=== PATIENT | female | born 1955 | race Caucasian/White ===

== ENCOUNTER → 2017-01-02 | Outpatient (CLI) | payer OTHER ==
[~2017-01-02] VITALS: Ht 167.6 cm; Wt 154.2 kg
[~2017-01-02] MED LIST: ALBU6.7H INH; CALC750T PO; CHLORHEXIDINE GLUCONATE 2 % 1 PACK (2 CLOTHS) TOPICAL PRN; CYAN25003 SL; DEXTROSE 5% IN WATE 1000ML INJ 1,000 ML IV SCH; FLUT50SP EACH NARE; GABA300C3 PO; GABA300C5 PO; GEMF600T PO; HYDR1CAP30 PO; HYDR50CA PO; INSULIN HUMAN REGULAR 1,000 UNITS/10 ML VIAL SQ PRN; LACTATED RINGER'S 1000 ML IV PRN; LISI-357 PO; LISI-519 PO; METOPROLOL TARTRATE 25 MG TAB PO PRN; MULTCHW27 PO; NITR0.4S SL; NOVO7030P2 SQ; NOVORP2 SQ; POVIDONE IODINE 5% (ANTISEPSIS KIT) 4 APPLICATIONS EACH NARE PRN; PROPOFOL 200 MG/20 ML AMP ONE; RANI150 PO; SODIUM CHLORID 0.9% 500 ML IV PRN; TRAM50TA PO; ULTR50TA PO; ePHEDrine/NS 25 MG/5 ML SYR ONE
--- NOTE | 2017-01-02 13:40 | EKG ---
Date Performed: 01/02/2017 Time Performed: 10:50:22 PTAGE: 61 years EKG: Sinus rhythm WITH FIRST DEGREE AV BLOCK LOW QRS VOLTAGE IN PRECORDIAL LEADS POSSIBLE ANTERIOR MYOCARDIAL INFARCTI ON , PROBABLY OLD INFERIOR MYOCARDIAL INFARCTION , PROBABLY OLD ABNORMAL ECG PREVIOUS TRACING : 10/04/2006 03.11 DOCTOR: Douglas Root Interpretating Date/Time 01/02/2017 13:38:25
[2017-01-02 14:15] VITALS: BP 131/67; PULSE 74; RESP 18; TEMP 97.6; O2SAT 97
--- NOTE | 2017-01-02 16:09 | MR ---
cc: BIPIN WOODRUFF DR.,DANNY Anidno MD DATE: 01/02/2017 PREOPERATIVE DIAGNOSIS Family history of colon cancer. POSTOPERATIVE DIAGNOSIS 3 mm hyperplastic polyp of the ascending and rectum times two, fulgurated. PROCEDURE Total colonoscopy with fulguration of polyps. SURGEON Danny Vargas MD ANESTHESIA MAC. INDICATION This is a 61-year-old whose sister had colon cancer in early age. The patient presents for colonoscopy. PROCEDURE The Pentax EC 3890 colonoscope was introduced from the anus to the cecum with some difficulty due to chronic left colon looping. Straightening maneuvers were performed, abdominal pressure was not necessary. The instrument was passed fully into the cecum. The bowel was identified, the cecum seen completely. The scope was then withdrawn. The bowel prep was good. There was some retained liquid stool and with some difficulty insufflating the colon fully. The above-mentioned polyps were identified and treated. The patient tolerated the procedure well. PLAN Recommend colonoscopy in 5 years. Danny Vargas MD DM/JULY /1:42 PM /3:42 PM
== END ==
LOC: HSDC 09:56
PROVIDERS: ATTEND Colon & Rectal Surgery
DX: Z12.11 Encounter for screening for malignant neoplasm of colon (principal); Z80.0 Family history of malignant neoplasm of digestive organs; K63.5 Polyp of colon; R94.31 Abnormal electrocardiogram [ECG] [EKG]
CPT/HCPCS: 93005